=== PATIENT | male | born 1955 | race Caucasian/White ===

== ENCOUNTER 2022-11-03 11:42 | Emergency (ER) | payer OTHER, BC, MEDICARE ==
[2022-11-03] MEDS ORDERED: Boostrix 0.5 ML (Tdap) VIAL (>/=7 yrs of age) ONE (12:18)
[2022-11-03] MEDS ORDERED: Acetaminophen 500 MG TAB ONE (12:18)
== END 2022-11-03 13:16 | disposition home or self-care (01) ==
LOC: BURERS 11:42
DX: S70.02XA Contusion of left hip, initial encounter (principal); S00.83XA Contusion of other part of head, initial encounter; W64.XXXA Exposure to other animate mechanical forces, initial encounter; Y93.89 Activity, other specified; Z23 Encounter for immunization
CPT/HCPCS: 70450; 70486; 72125; 90471; 90715